=== PATIENT | male | born 1950 | race Caucasian/White ===

== ENCOUNTER → 2017-03-18 | Outpatient (CLI) | payer OTHER | END | disposition disaster alternative care site (69) | LOC: GRAD 10:35 | DX: C61 Malignant neoplasm of prostate (principal); R93.0 Abnormal findings on diagnostic imaging of skull and head, not elsewhere classified | CPT/HCPCS: A9503; Q9967 ==

== ENCOUNTER 2017-04-29 11:25 | Emergency (ER) | payer OTHER ==
--- NOTE | ~2017-04-29 | ER ---
PATIENT'S NAME: MERON WHITE [facility] AGE: 67 Y [address] ROOM: [place] [address] LOCATION: [facility] ADMIT DATE: 04/29/2017 ER/Outpatient Report DISCHARGE DATE: 04/29/2017 FAMILY PHYSICIAN: Martin Mcallister MD ATTENDING PHYSICIAN: Eugene Oropeza TIME OF ARRIVAL: 1124 hours. TIME OF EVALUATION: 1124 hours. CHIEF COMPLAINT: Bleeding. HISTORY OF PRESENT ILLNESS: The patient is a 67-year-old male, who presents to the emergency department today with a chief complaint of bleeding. He underwent a robotic prostatectomy on Tuesday by Dr. Arboleda. He does report that he has had a clearish bloody- type fluid draining from his right lower quadrant incision. He denies any fevers or chills. No nausea or vomiting. No diarrhea. He does have constipation. His last bowel movement was Tuesday. He is still passing gas. He reports a dull, sharp type pain in his lower abdomen. He does report that the incision was leaking before he left the hospital at [facility] yesterday. Pain is currently 3/10 in severity. PAST MEDICAL HISTORY: Hypertension. PAST SURGICAL HISTORY: Knee x2 and mastoidectomy. SOCIAL HISTORY: The patient quit 13 years ago, smoking. He reports occasional alcohol use. He denies any illicit drug use. ALLERGIES: TO AMOXICILLIN. MEDICATIONS: Please see list. PRIMARY CARE DOCTOR: Miguel Jarrell MD PATIENT'S NAME: MERON WHITE [facility] AGE: 67 Y [address] ROOM: [place] [address] LOCATION: [facility] ADMIT DATE: 04/29/2017 ER/Outpatient Report DISCHARGE DATE: 04/29/2017 FAMILY PHYSICIAN: Martin Mcallister MD ATTENDING PHYSICIAN: Eugene Oropeza REVIEW OF SYSTEMS: All systems are reviewed by myself and are negative with the exception of those discussed in the HPI and past medical history. PHYSICAL EXAMINATION: VITAL SIGNS: Weight 108 kg. Blood pressure 140/57, pulse 85, respiratory rate 20, temperature 98.0, and oxygen saturation 95% on room air. GENERAL: The patient is a 67-year-old male, who appears stated age, in no acute distress at this time. HEENT: Head: Normocephalic and atraumatic. Pupils are equal, round, and reactive to light. NECK: Supple. There is no nuchal rigidity. CARDIOVASCULAR: Regular rate and rhythm. No murmurs, rubs, or gallops. LUNGS: Clear to auscultation bilaterally. No wheezes, rales, or rhonchi. ABDOMEN: Soft. Mild diffuse tenderness to palpation. He does have a hematoma noted to the right lower quadrant at the surgical incision site. The right lower quadrant, he does have some very slight drainage. SKIN: Warm and dry except for as described above under abdomen. LABORATORY DATA AND X-RAYS: CBC is unremarkable except for white blood cell count of 13.6. IMPRESSION: 1. Wound check, status post prostatectomy with serosanguineous drainage. 2. Initial visit. EMERGENCY DEPARTMENT COURSE: The patient was brought back to the examination room. Seen and evaluated by myself. Laboratory analysis obtained and as described above. The patient's wound is evaluated. He is just having minimal serosanguineous drainage noted. I have discussed the case with Dr. Arboleda. The patient and his are requesting some extra assistance at home taking care of this. He will talk with Cordelia, his loan service officer to help assist in obtaining home health. We have bandaged the area. I have discussed return to care instructions including worsening symptoms or other concerns to return to the emergency department as soon as possible. The patient is agreeable without further questions at this time. DISPOSITION: The patient is discharged to home in good condition. EUGENE OROPEZA DO PATIENT'S NAME: MERON WHITE [facility] AGE: 67 Y [address] ROOM: [place] [address] LOCATION: ED ADMIT DATE: 04/29/2017 ER/Outpatient Report DISCHARGE DATE: 04/29/2017 FAMILY PHYSICIAN: Martin Mcallister MD ATTENDING PHYSICIAN: Eugene Oropeza/jose /[id number] d: 04/29/17 1814 t: 05/02/17 0958, OUTPATIENT REPORT
[2017-04-29 12:03] LABS: BASOPHIL # 0.1 K/uL (0.0-0.2); BASOPHIL % 0.4 %; EOSINOPHIL # 0.2 K/uL (0.0-0.5); EOSINOPHIL % 1.1 %; HEMATOCRIT 37.4 % (37.0-53.0); HEMOGLOBIN 12.6 g/dL (11.0-16.0); IMMATURE GRANULOCYTE # 0.1 K/uL (0.0-0.3); IMMATURE GRANULOCYTE % 0.4 %; LYMPHOCYTE # 2.6 K/uL (0.8-4.0); LYMPHOCYTE % 18.8 %; MCHC 33.7 gm/dL (32.0-36.5); MCV 92.1 fl (83.0-98.0); MONOCYTE # 0.9 K/uL (0.0-1.0); MONOCYTE % 6.8 %; MPV 9.1 fl (9.4-12.4); NEUTROPHIL # (ANC) 9.9 K/uL (1.4-9.0); NEUTROPHIL % 72.5 %; NRBC % 0 /100WBC (0-0.00); PLATELET COUNT 239 K/uL (150-450); RBC 4.06 M/uL (3.50-5.50); RDW-CV 13.9 % (11.9-14.6); WBC 13.6 K/uL (4.0-11.0)
== END 2017-04-29 12:59 | disposition disaster alternative care site (69) ==
LOC: GMED 11:25
PROVIDERS: Emergency Medicine
DX: N99.842 Postprocedural seroma of a genitourinary system organ or structure following a genitourinary system procedure (principal); K59.00 Constipation, unspecified; I10 Essential (primary) hypertension; Z98.890 Other specified postprocedural states; Z87.891 Personal history of nicotine dependence; Z88.1 Allergy status to other antibiotic agents; Z79.891 Long term (current) use of opiate analgesic; Z79.899 Other long term (current) drug therapy

== ENCOUNTER → 2017-05-02 | Outpatient (CLI) | payer OTHER | END | disposition disaster alternative care site (69) | LOC: GRAD 07:49 | DX: Z48.816 Encounter for surgical aftercare following surgery on the genitourinary system (principal); T83.038A Leakage of other urinary catheter, initial encounter; Z90.79 Acquired absence of other genital organ(s) ==

== ENCOUNTER → 2017-05-19 | Outpatient (CLI) | payer OTHER | END | disposition disaster alternative care site (69) | LOC: GRAD 13:23 | DX: Z48.816 Encounter for surgical aftercare following surgery on the genitourinary system (principal); T83.038A Leakage of other urinary catheter, initial encounter; Z90.79 Acquired absence of other genital organ(s) | CPT/HCPCS: J7030 ==

== ENCOUNTER → 2017-05-20 | Outpatient (CLI) | payer OTHER ==
--- NOTE | ~2017-05-20 | CON ---
PATIENT'S NAME: MERON WHITE [facility] AGE: 67 Y [address] ROOM: [place] [address] LOCATION: [facility] ADMIT DATE: 05/20/2017 Consultation DISCHARGE DATE: FAMILY PHYSICIAN: YEE CARRASCO MD ATTENDING PHYSICIAN: ALEJANDRO ARROYO DATE OF CONSULTATION: 05/20/2017 CHIEF COMPLAINT: Urine leak. HISTORY OF PRESENT ILLNESS: The patient is a pleasant 67-year-old male with a history of prostate cancer, who had undergone recent robotic-assisted laparoscopic prostatectomy on April 25, 2017. I had recently seen him earlier in the day in our clinic. Based on recent CT cystogram findings consistent with a persistent and possible worsening urinary leak at his urethrovesical anastomosis and migration of balloon down somewhat below his bladder neck, I had taken the balloon down on the catheter in clinic and readvanced the catheter with reinsertion in the balloon. Given his history, I had sent him over to Radiology for a cystogram to confirm placement of the catheter with good positioning at the bladder neck. During his cystogram, I was called over by Radiology given findings on cystogram consistent with the catheter now outside of his bladder and in the retroperitoneal space. PHYSICAL EXAM: CONSTITUTIONAL: The patient is in no acute distress. He is awake and oriented. HEENT: Extraocular muscles intact. Mucous membranes moist. No drainage per ears and nose. CARDIAC: Good peripheral perfusion. RESPIRATORY: No audible wheezing or stridor. ABDOMEN: Benign. Incision is clean, dry, and intact with no redness or drainage. GENITOURINARY: Indwelling Fernandez catheter with clear output in tubing. HEMATOLOGIC: No bruising or active sites of bleeding. PSYCHIATRIC: Normal affect and answers questions appropriately. PROCEDURE: Cystoscopy with placement of indwelling Fernandez catheter. Of note, I was called into the radiology suite given findings of the catheter down his retroperitoneal space. I worked closely with Dr. Aguilera with Radiology in trying to navigate a wire into his bladder using a curved and Kumpe catheters after removing his old indwelling Fernandez catheter. We were PATIENT'S NAME: MERON WHITE [facility] AGE: 67 Y [address] ROOM: [place] [address] LOCATION: [facility] ADMIT DATE: 05/20/2017 Consultation DISCHARGE DATE: FAMILY PHYSICIAN: YEE CARRASCO MD ATTENDING PHYSICIAN: ALEJANDRO ARROYO unsuccessful in getting a catheter into his bladder. At this point, I went ahead and proceeded with flexible cystoscopy, and using direct vision via cystoscopy but also assistance from fluoroscopy, I was able to successfully navigate the Fernandez catheter into his bladder. I did perform a cystogram to confirm positioning within the bladder. I then used the Amplatz Super Stiff guidewire, and advanced it through the cystoscope and into his bladder. Now over the Super Stiff guidewire, I advanced a 16-Amharic [place] tip Fernandez catheter easily into his bladder and removed the wire leaving the catheter in place. Approximately 50 mL of sterile water was placed in the catheter balloon, and this was placed to gravity drainage. I again confirmed correct positioning of the catheter within his bladder using fluoroscopy. The patient did tolerate this quite well. IMPRESSION: 1. Prostatic adenocarcinoma, status post robotic-assisted laparoscopic prostatectomy. 2. Urinary leak at urethrovesical anastomosis. FOLLOWUP PLAN: We will plan for the patient to remain with his Fernandez catheter to gravity drainage. Also, given his presumed urinary tract infection, we will keep him on Bactrim pending urine culture results. We will plan for repeat cystogram in 2 weeks from now to evaluate for any improvement in his urine leak. ALEJANDRO ARROYO MD GP/modl /[id number] d: 05/21/17 0241 t: 05/26/17 1120, CONSULTATION REPORT
== END | disposition disaster alternative care site (69) ==
LOC: GRAD 14:00
DX: T83.091A Other mechanical complication of indwelling urethral catheter, initial encounter (principal); C61 Malignant neoplasm of prostate; Z90.79 Acquired absence of other genital organ(s)
CPT/HCPCS: C1887; J7030

== ENCOUNTER → 2017-06-02 | Outpatient (CLI) | payer OTHER | END | disposition disaster alternative care site (69) | LOC: GRAD 13:58 | DX: Z48.816 Encounter for surgical aftercare following surgery on the genitourinary system (principal); T83.038A Leakage of other urinary catheter, initial encounter ==